=== PATIENT | female | born 1995 | race Hispanic/Latino ===

== ENCOUNTER 2017-12-23 06:00 | Emergency (ER) | payer OTHER ==
--- NOTE | 2017-12-23 09:04 | RAD ---
PORTABLE CHEST ONE VIEW: Date: 12-23-17 Time: 5:55 a.m. History: Shortness of breath. FINDINGS: The heart size is normal. The lungs are well expanded with no lobar consolidation, pneumothorax or pl eural effusions. IMPRESSION: No acute process. POS: [facility]
--- NOTE | 2017-12-27 13:15 | EKG ---
Test Reason : Blood Pressure : / mmHG Vent. Rate : 061 BPM Atrial Rate : 061 BPM P-R Int : 146 ms QRS Dur : 102 ms QT Int : 402 ms P-R-T Axes : 017 084 032 degrees QTc Int : 404 ms Normal sinus rhythm with sinus arrhythmia Normal ECG Confirmed by MADELINE GUZMAN ([id number]), senior technical editor DIANA MA ([id number]) on 12/27/2017 1:15:02 PM Referred By: Confirmed By:MADELINE GUZMAN
== END 2017-12-23 07:09 | disposition home or self-care (01) ==
LOC: ERS 06:00
DX: F43.0 Acute stress reaction (principal); F41.9 Anxiety disorder, unspecified
CPT/HCPCS: 71045; 93005